=== PATIENT | female | born 1975 | race Caucasian/White ===

== ENCOUNTER 2016-10-23 20:34 | Emergency (ER) | payer MEDICAID ==
[2016-10-23] MEDS ORDERED: KETOROLAC 60 MG/2 ML VIAL IM ONE (22:21)
[2016-10-23] MEDS ORDERED: CYCLOBENZAPRINE 10 MG TAB ONE (22:22)
== END 2016-10-23 23:18 | disposition home or self-care (01) ==
LOC: ER 20:34
CPT/HCPCS: 82947; 96372

== ENCOUNTER 2016-11-07 20:21 | Emergency (ER) | payer MEDICAID | END 2016-11-07 23:05 | disposition home or self-care (01) | LOC: FASTR 20:21 | DX: S92.354A Nondisplaced fracture of fifth metatarsal bone, right foot, initial encounter for closed fracture (principal); W01.0XXA Fall on same level from slipping, tripping and stumbling without subsequent striking against object, initial encounter; Y92.009 Unspecified place in unspecified non-institutional (private) residence as the place of occurrence of the external cause; E11.9 Type 2 diabetes mellitus without complications; Z79.4 Long term (current) use of insulin; E03.9 Hypothyroidism, unspecified; E66.9 Obesity, unspecified ==